=== PATIENT | female | born 1995 | race Caucasian/White ===

== ENCOUNTER 2017-11-07 20:13 | Emergency (ER) | payer MEDICAID ==
[~2017-11-07] VITALS: Ht 175.3 cm; Wt 123.0 kg
[~2017-11-07 20:13] MED LIST: GUAI1TBM19 PO
[2017-11-07] MEDS ORDERED: acetaminophen 325mg tablet PO ONE (20:40)
[2017-11-07] MEDS ORDERED: ketorolac trometh inj. 60 MG/2 ML VIAL IM ONE (20:40)
[2017-11-07 20:51] LABS: URINE HCG NEGATIVE (NEG)
[2017-11-07 21:18] LABS: CLARITY,URINE CLOUDY (Clear); COLOR,URINE YELLOW (Yellow); GLUCOSE, URINE NEGATIVE (Neg); KETONES,URINE NEGATIVE (Neg); LEUKOCYTE ESTERASE ,URINE NEGATIVE (Neg); NITRITES, URINE NEGATIVE (Neg); OCCULT BLOOD,URINE SMALL (Neg); PROTEIN,URINE NEGATIVE (Neg); UROBILINOGEN,URINE 0.2 E.U/dL (0.2-1.0)
[2017-11-07 21:30] VITALS: BP 117/94
[2017-11-07 21:31] LABS: BASOPHILS % (AUTO) 0.3 % (0-1); EOSINOPHILS # (AUTO) 0.2 X10'3 (0-0.9); EOSINOPHILS % (AUTO) 2.4 % (0-6); HEMATOCRIT 40.8 % (35.0-45.0); LYMPHOCYTES # (AUTO) 2.7 X10'3 (1.1-4.8); LYMPHOCYTES % (AUTO) 27.1 % (21-51); MEAN CORPUSCULAR HEMOGLOBIN 29.3 PG (27.0-31.0); MEAN CORPUSCULAR HGB CONC 34.4 % (33.0-36.5); MEAN CORPUSCULAR VOLUME 85.4 FL (78-98); MEAN PLATELET VOLUME 10.3 FL (7.4-10.4); MONOCYTES # (AUTO) 0.6 X10'3 (0-0.9); MONOCYTES % (AUTO) 6.3 % (2-12); NEUTROPHILS # (AUTO) 6.4 X10'3 (1.8-7.7); NEUTROPHILS % (AUTO) 63.9 % (42-75); PLATELET COUNT 217 X10'3 (140-440); RED BLOOD COUNT 4.78 X10'6 (4.20-5.60); RED CELL DISTRIBUTION WIDTH 13.4 % (11.5-14.5); WHITE BLOOD COUNT 9.9 X10'3 (4.5-11.0)
[2017-11-07 21:34] LABS: UA COLLECTION TYPE CLN CATCH MIDSTREAM
[2017-11-07 21:42] LABS: PROTHROMBIN TIME 9.9 SECONDS (9.0-12.0)
[2017-11-07 21:45] LABS: ALANINE AMINOTRANSFERASE 49 U/L (12-78); ALBUMIN 3.5 G/DL (3.4-5.0); ALBUMIN/GLOBULIN RATIO 0.8 (1.1-1.5); ALKALINE PHOSPHATASE 104 IU/L (46-116); ANION GAP 9 (8-16); ASPARTATE AMINO TRANSFERASE 19 U/L (10-37); BILIRUBIN,TOTAL 0.2 MG/DL (0.1-1.0); BLOOD UREA NITROGEN 10 MG/DL (7-18); BUN/CREATININE RATIO 10.5 (6.6-38.0); CALCIUM 8.9 MG/DL (8.5-10.1); CHLORIDE 105 MMOL/L (99-107); CREATININE 0.95 MG/DL (0.40-0.90); GLUCOSE 115 MG/DL (70-104); POTASSIUM 3.8 MMOL/L (3.5-5.1); SODIUM 142 MMOL/L (135-145); TOTAL PROTEIN 7.8 G/DL (6.4-8.2); eGFR 74 ML/MIN
[2017-11-07 22:02] LABS: RBC,URINE 0-2 /HPF (0-2); WBC,URINE 0-4 /HPF (0-4)
[2017-11-07] MEDS ORDERED: CYCL-1 PO (22:02)
[2017-11-07] MEDS ORDERED: MELO-100 PO (22:02)
[2017-11-07 22:03] LABS: BACTERIA,URINE FEW /HPF (Neg); SQUAMOUS EPITHELIAL CELL,UR MANY /LPF (FEW)
== END 2017-11-07 22:23 | disposition home or self-care (01) ==
LOC: ER 20:13
DX: M54.5 Low back pain (principal); R10.84 Generalized abdominal pain; R20.2 Paresthesia of skin; Z88.1 Allergy status to other antibiotic agents; Z79.899 Other long term (current) drug therapy
CPT/HCPCS: 36415; 80053; 81001; 81025; 85025; 85610; 96372; 99284; J1885

== ENCOUNTER 2019-02-01 11:21 | Emergency (ER) | payer MEDICAID ==
[~2019-02-01] VITALS: Ht 175.3 cm; Wt 126.8 kg
[~2019-02-01 11:21] MED LIST changes: +CYCL-1 PO; +MELO-100 PO
[2019-02-01] MEDS ORDERED: LIDOcaine 5% patch TP ONE (12:05)
[2019-02-01] MEDS ORDERED: CELE-193 PO (12:21)
[2019-02-01] MEDS ORDERED: TRAM50TA2 PO (12:21)
[2019-02-01 12:28] VITALS: BP 105/77
== END 2019-02-01 12:29 | disposition home or self-care (01) ==
LOC: ER 11:21
DX: S80.02XA Contusion of left knee, initial encounter (principal); S70.12XA Contusion of left thigh, initial encounter; G89.29 Other chronic pain; M54.9 Dorsalgia, unspecified; Z88.1 Allergy status to other antibiotic agents; X58.XXXA Exposure to other specified factors, initial encounter; Y93.89 Activity, other specified; Y92.89 Other specified places as the place of occurrence of the external cause; Y99.8 Other external cause status
CPT/HCPCS: 99283

== ENCOUNTER 2022-04-04 14:55 | Emergency (ER) | payer MEDICAID | END 2022-04-04 18:30 | disposition left against medical advice (07) | LOC: ER 14:56 | DX: M25.539 Pain in unspecified wrist (principal); Z53.21 Procedure and treatment not carried out due to patient leaving prior to being seen by health care provider ==

== ENCOUNTER 2025-04-26 09:55 | Emergency (ER) | payer MEDICAID ==
[~2025-04-26] VITALS: Ht 170.2 cm; Wt 93.3 kg
[2025-04-26 10:33] VITALS: TEMP 97.6
[2025-04-26 11:00] LABS: MEAN PLATELET VOLUME 9.9 FL (7.4-10.4); RED CELL DISTRIBUTION WIDTH 13.7 % (11.5-14.5)
[2025-04-26 11:08] LABS: CREATININE 0.53 MG/DL (0.40-0.90); TOTAL CARBON DIOXIDE 28.2 MMOL/L (24-32); eCRCL 151 ML/MIN; eGFR > 90 ML/MIN
--- NOTE | 2025-04-26 12:02 | Physician Documentation ---
History of Present Illness CC: SANKET BATES MD ~ Chief Complaint: Complications Stated Complaint: 36 WEEKS PREG/ FALL WITH PELVIC PRESSURE Time Seen by MD: 10:41 Primary Medical Doctor: none HPI This is a 29-year-old female L1A1 presents to the ER with chief complaint of a syncopal episode last night. Patient passed out in the kitchen and her father found her clutching her abdomen. She was not able to sleep during the night due to abdominal pain. However she denies any fever, bleeding per vagina, amniotic fluid, burning during micturition or any other symptoms. She is currently not in pain. Abdomen is not tender to palpation. No evidence of bleeding. She had a miscarriage at 12 weeks gestation during her 2nd but is unsure about the reason why. She has poor care due to being homeless when she found out she was . Last Menstrual Period: Jul 17, 2024 Medication Reconciliation Allergies: Coded Allergies: amoxicillin (Verified Allergy, Unknown, 04/26/25) Scheduled Guaifenesin/Dextromethorphan (Mucinex Dm ER 1,200-60 mg Tab), 1 TAB PO Q12H Meloxicam* (Meloxicam*), 1 TAB PO DAILY Scheduled PRN Cyclobenzaprine* (Cyclobenzaprine*), 1 TABLET PO Q8H PRN for muscle spasms Past Medical History Past Medical History: Chronic Back Pain Past Surgical History: noncontributory Last Menstrual Period: Jul 17, 2024 Alcohol Use: None Drug Use: none Lives with: Family Lives In: Home Review of Systems Constitutional Constitutional: No fever, chills, dizziness, weakness, weight gain or loss Eyes: No pain, erythema, discharge, blurring of vision ENT: No sore throat, epistaxis, tinnitus Cardiovascular: No palpitations, syncope, lower extremity edema, paroxysmal nocturnal dyspnea Respiratory: No hemoptysis Gastrointestinal: Normal appetite. No nausea, vomiting, diarrhea, constipation, hematemesis, abdominal pain, bloating, melena or fresh blood Genitourinary: No frequency, urgency, nocturia, hematuria or dysuria Musculoskeletal: No arthralgias or myalgias Integumentary: No change in skin, hair, nails. No swelling, bruising, abrasions Neurologic: No headache, neck pain, numbness or tingling of the extremities, weakness Psychiatric: No delusions, depression, loss of interest in normal activity or change in sleep pattern, hallucinations, suicidal ideations Endocrine: No fatigue, weakness, polydipsia, polyuria, change in appetite, heat or cold intolerance, sweating, dry skin Hematological: No bleeding, petechiae, bruising Allergies: No asthma or urticaria Physical Exam Physical Exam Vital Signs: Temperature: 97.6, Source: Oral, Heart Rate: 95, Respiratory Rate: 14, BP: 126/76, Pulse Oximetry: 100, Weight: 93.300 Physical Exam General: Awake and Alert, no acute distress. HEENT: Conjunctiva pink, Sclera clear, Mucus Membranes moist Neck: Supple without masses and tenderness. Resp: Unlabored. Equal breath sounds bilaterally. Heart: Regular rhythm, normal S1 and S2, no rub, murmur or gallop, muffled heart sounds. Abdomen: Soft and non tender no organomegaly. Normal bowel sounds x4 quadrant normoactive. No guarding or rigidity. Obstetric: Cervix is closed, no evidence of bleeding PV or fluid PV. No tenderness to palpation of abdomen. Fundal height is appropriate for the gest ational age Extremities: Normal ROM, no swelling, nontender. No cyanosis,clubbing or edema. [employer]: No gross motor or sensory abnormalities. Skin: Warm and Dry. Heart Rate: 153 Progress Results/Orders Results/Orders Completed Orders - SANKET BATES MD Electrocardiogram (04/26/25 11:04) Vital Signs 04/26/25 04/26/25 04/26/25 04/26/25 10:00 10:20 10:33 12:42 Temp 97.6 97.6 Pulse 96 95 83 Resp 18 17 14 18 B/P (MAP) 122/73 126/76 (93) 108/66 Pulse Ox 98 100 98 Laboratory Tests Test 04/26/25 10:20 04/26/25 10:40 White Blood Count 11.6 H Red Blood Count 3.95 L Hemoglobin 10.7 L Hematocrit 31.9 L Mean Corpuscular Volume 80.9 Mean Corpuscular Hemoglobin 27.0 Mean Corpuscular Hemoglobin Concent 33.4 Red Cell Distribution Width 13.7 Platelet Count 251 Mean Platelet Volume 9.9 Neutrophils (%) (Auto) 80.5 H Lymphocytes (%) (Auto) 11.8 L Monocytes (%) (Auto) 6.1 Eosinophils (%) (Auto) 1.5 Basophils (%) (Auto) 0.1 Neutrophils # (Auto) 9.4 H Lymphocytes # (Auto) 1.4 Monocytes # (Auto) 0.7 Eosinophils # (Auto) 0.2 Basophils # (Auto) 0.0 CBC Comment Sodium Level 140 Potassium Level 3.9 Chloride Level 106 Carbon Dioxide Level 28.2 Anion Gap 6 L Blood Urea Nitrogen 5 L Creatinine 0.53 Estimated GFR/1.73 m2 > 90 BUN/Creatinine Ratio 9.4 L Glucose Level 93 Calcium Level 8.8 Total Bilirubin 0.2 Aspartate Amino Transf (AST/SGOT) 16 Alanine Aminotransferase (ALT/SGPT) 12 Alkaline Phosphatase 176 H Total Protein 6.8 Albumin 2.3 L Globulin 4.5 H Albumin/Globulin Ratio 0.5 L Chemistry Comments Glucometer 107 H EKG/XRAY/CT/US/VASC/MRI EKG : Additional Comment I personally interpreted the EKG and this shows: Sinus rhythm, rate 81, QTC 418, no STEMI Ultrasound : Impression Ultrasound report reviewed, shows a 36 week , no complications Medical Decision Making Additional information obtaine: other Findings Obstetric ultrasound was within normal limits with no evidence of hemorrhage, amniotic fluid infection, closed cervix and appropriate gestational age. [place] [address] which is normal for and slightly elevated ALP with normal AST and ALT. Patient's abdominal pain has resolved and FLORENTINO is 05/19/2025 and obstetric ultrasound corresponds to gestational age of 36 weeks and five days. Patient can be discharged home and can follow up with her communications department head. heart rate monitor showed heart rate of 150 and a obstetric ultrasound showed heart rate of 140. Syncopal episode is likely vasovagal and related to dehydration. Patient was also found to be slightly anemic with a hemoglobin of 10.6. Advice multivitamin and iron supplementation Differential Dx:Considerations: Include: -complete, -incompl ete, -inevitable, -missed, -threatened, Abruptio placentae, Active labor-term, Active labor-, Appendicitis, Chambers-Lopez contraction, Cystitis: Acute, Discomfort of , Ectopic , Ectopic preg.-ruptured, demise, Placenta previa, Pyelonephritis: Acute, Ruture of membranes, Third trimester bleeding, UTI, Vaginal bleeding, Vaginal d elivery, Other Additional Comment vasovagal syncope Addendum I supervised the patient on evaluation of this patient. I also reviewed her laboratory testing, EKG and ultrasound. No dangerous cause identified for her syncope, this is likely vasovagal in the setting of . There was also no evidence of dangerous abdominal injury or threat to the . As the patient is no longer symptomatic, she will be discharged with ongoing outpatient management and return precautions. Sanket Bates MD Departure Disposition: HOME / SELF CARE / HOMELESS Impression: Primary Impression: Anemia Condition: Stable Additional Instructions: Follow up with your communications department head. ultrasound shows a appropriate gestational age of 36 weeks five days and estimated delivery date FLORENTINO 05/19/2025. Return to the ER if you have fever, worsening abdominal pain or bleeding per vagina.. Advised [id number] gestational iron supplementation for your anemia. Referrals: NO PRIMARY CARE PROVIDER (PCP) Education Educated: Patient Educated regarding: need for follow up Signature Scribe Signature: No Scribe Attestation: PGY2 resident attestation: Patient was seen and examined with the attending doctor Dr. Maynor Donohue MD PGY 2 internal medicine resident SHAE DAVIS, RES Apr 26, 2025 12:02 SANKET BATES MD Apr 26, 2025 18:42
--- NOTE | 2025-04-26 12:09 | ELECTROCARDIOGRAPH REPORT ---
[facility] Test Date: 2025-04-26 Test Time: 12:07:08 Pat Name: KAYY PATTON Department: [facility]- Patient ID: [facility]-[id number] Room: Gender: F Doughnut Fryer: : 1995 Requested By: MELANIE BATES Order Number: [id number] Reading MD: Dr. ROYA Sevilla Measurements Intervals [place] Rate: 81 P: 47 PA: 127 QRS: 58 QRSD: 83 T: 40 QT: 360 QTc: 418 Interpretive Statements Sinus rhythm Electronically Signed On 04-28-2025 18:09:[address] ROYA Sevilla Please click the below link to view image of tracing.
--- NOTE | 2025-04-26 12:15 | RADIOLOGY REPORT ---
LIMITED OB ULTRASOUND > 14 WKS: HISTORY: abd pain after fall and trauma, 36 wks TECHNIQUE: Multiple real-time grayscale images of the gravid uterus with duplex Doppler color flow and M-mode spectral analysis. TRANSDUCER: Transabdominal COMPARISON: None FINDINGS: IUP single live fetus at 36 weeks and 5 days based on composite averages of the BPD, head circumference, abdominal circumference and femur length Estimated weight 2981 grams heart rate 145 beats per minute EZRA 12.3 cm Cervix is closed and measures 4.2 cm Cephalic Presentation Fundal Placenta without previa or abruption. IMPRESSION: IUP single live fetus at 36 weeks and 5 days AUA corresponding to an FLORENTINO of 05/19/2025
[2025-04-26 12:42] VITALS: BP 108/66; PULSE 83; RESP 18; O2SAT 98
== END 2025-04-26 12:43 | disposition home or self-care (01) ==
LOC: ER 09:55
DX: O99.013 Anemia complicating pregnancy, third trimester (principal); G89.29 Other chronic pain; Z88.8 Allergy status to other drugs, medicaments and biological substances; Z88.1 Allergy status to other antibiotic agents; Z79.899 Other long term (current) drug therapy; Z59.00 Homelessness unspecified; Z3A.36 36 weeks gestation of pregnancy
CPT/HCPCS: 36415; 76815; 80053; 82948; 85025; 93005; 99284